=== PATIENT | female | born 1975 | race Caucasian/White ===

== ENCOUNTER 2017-02-22 17:33 | Emergency (ER) | payer OTHER ==
[~2017-02-22] VITALS: Ht 160 cm; Wt 74.4 kg
[~2017-02-22 17:33] MED LIST: ESCITALOPRAM OX20 MG PO; LINZESS290 MCG PO
[2017-02-22] MEDS ORDERED: BACTROBAN15 GM TOP (18:46)
--- NOTE | 2017-02-23 18:56 | EKG ---
[facility] [address] [place], [place] [address] Signed Normal sinus rhythm with sinus arrhythmia Normal ECG No previous ECGs available Confirmed by EVY WEINBERG MD ([id number]) on 02/23/2017 6:55:39 PM Electronically Signed By: EVY WEINBERG MD 02/23/17 1856 PATIENT NAME: FANNY BARDALES Electrocardiogram DATE OF : 79 PHYSICIAN: EVY WEINBERG MD REPORT #: [id number] REPORT IS CONFIDENTIAL AND NOT TO BE RELEASED WITHOUT AUTHORIZATION
== END 2017-02-22 19:28 | disposition home or self-care (01) ==
LOC: ED 17:33
PROC: 0HQ1XZZ Repair Face Skin, External Approach (ICD-10-PCS; principal; 2017-02-22)
DX: R55 Syncope and collapse (principal); S01.112A Laceration without foreign body of left eyelid and periocular area, initial encounter; Z90.49 Acquired absence of other specified parts of digestive tract; Z88.2 Allergy status to sulfonamides; Z88.5 Allergy status to narcotic agent; Z88.8 Allergy status to other drugs, medicaments and biological substances; Z79.899 Other long term (current) drug therapy; W19.XXXA Unspecified fall, initial encounter
CPT/HCPCS: 12013; 80053; 84484; 85025; 93005; 93010; 99284

== ENCOUNTER 2018-05-28 11:09 | Emergency (ER) | payer OTHER ==
[~2018-05-28] VITALS: Ht 160 cm; Wt 74.4 kg
[~2018-05-28 11:09] MED LIST changes: +BACTROBAN15 GM TOP
--- OUTSIDE RECORDS SUMMARY | 2018-05-28 11:14 | XMS ---
PreManage Notification: FANNY BARDALES Security Scanning Clerk Events No recent Security Events currently on file CRITERIA MET - [facility] - 2 Visits in 30 Days CARE PROVIDERS [facility] Current PHONE: Unknown Fredy has no Care Guidelines for this patient. [facility] MO[facility] TOTAL 2 NOTE: Visits indicate total known visits. ED/C VISIT TRACKING (12 MO.) 05/28/2018 11:[address] [facility] TYPE: Emergency COMPLAINT: - SUICIDAL/DEPRESSION 05/12/2018 18:29 [facility] TYPE: Emergency DIAGNOSES: - Suicidal - Encounter for other general examination - Medical Clearance - Referral - Suicidal ideations - Major depressive disorder, single episode, unspecified INPATIENT VISIT TRACKING (12 MO.) No inpatient visits to display in this time frame [email or web address]
[2018-05-28] MEDS ORDERED: AMITIZA24 MCG PO (11:46)
[2018-05-28] MEDS ORDERED: DULOXETINE HCL30 MG PO (11:47)
[2018-05-28] MEDS ORDERED: LORAZEPAM1 MG PO (11:48)
[2018-05-28] MEDS ORDERED: SEROQUEL100 MG PO (11:48)
== END 2018-05-28 14:30 ==
LOC: ED 11:09
DX: F32.9 Major depressive disorder, single episode, unspecified (principal); F41.9 Anxiety disorder, unspecified; Z90.49 Acquired absence of other specified parts of digestive tract; Z88.2 Allergy status to sulfonamides; Z88.5 Allergy status to narcotic agent; Z88.8 Allergy status to other drugs, medicaments and biological substances; Z79.899 Other long term (current) drug therapy
CPT/HCPCS: 36415; 80053; 80176; 81001; 84443; 84703; 85025; 99283; G0480

== ENCOUNTER 2022-05-26 15:59 | Emergency (ER) | payer MEDICARE, OTHER ==
[~2022-05-26] VITALS: Ht 160 cm; Wt 74.4 kg
[~2022-05-26 15:59] MED LIST changes: +AMITIZA24 MCG PO; +DULOXETINE HCL30 MG PO; +LORAZEPAM1 MG PO; +SEROQUEL100 MG PO
[2022-05-26] MEDS ORDERED: ZANAFLEX4 MG PO (16:15)
[2022-05-26] MEDS ORDERED: BUPROPION XL300 MG PO (16:15)
[2022-05-26] MEDS ORDERED: LAMOTRIGINE25 MG PO (16:15)
[2022-05-26] MEDS ORDERED: NARATRIPTAN HC2.5 MG PO (16:16)
--- NOTE | 2022-05-26 19:21 | EKG ---
[facility] [address] [place], [place] [address] Signed Sinus bradycardia Otherwise normal ECG When compared with ECG of 22-FEB-2017 18:03, QT has shortened Confirmed by EVY WEINBERG MD ([id number]) on 05/26/2022 7:21:39 PM Electronically Signed By: EVY WEINBERG MD 05/26/221920 PATIENT NAME: FANNY BARDALES Electrocardiogram DATE OF : 79 PHYSICIAN: EVY WEINBERG MD REPORT #: [id number] REPORT IS CONFIDENTIAL AND NOT TO BE RELEASED WITHOUT AUTHORIZATION
== END 2022-05-26 17:58 | disposition home or self-care (01) ==
LOC: ED 15:59
DX: R55 Syncope and collapse (principal); Z88.2 Allergy status to sulfonamides; Z88.5 Allergy status to narcotic agent; Z88.8 Allergy status to other drugs, medicaments and biological substances; Z79.899 Other long term (current) drug therapy
CPT/HCPCS: 93005; 93010; 99284-25